=== PATIENT | female | born 1965 | race American Indian/Alaskan Native ===

== ENCOUNTER 2021-10-10 10:56 | Outpatient (CLI) | payer OTHER ==
--- NOTE | 2021-10-10 12:15 | XRay Report ---
BILATERAL KNEES 3 VIEWS INDICATION: BILATERAL KNEE PAIN. COMPARISON: None. IMPRESSION: No acute osseous or soft tissue abnormality. Mild to moderate osteoarthritic changes are identified bilaterally. The left knee appears slightly more affected. Surgical screw is suggested in the distal femur, correlate with surgical history. This may be related to previous ACL repair. No significant joint effusion. Signer Name: Mario Samuel Jr, MD Signed: 10/10/2021 12:11 PM Workstation Name: [id number]
== END 2021-10-10 10:57 | disposition home or self-care (01) ==
LOC: XRAY 10:56
PROVIDERS: ATTEND Internal Medicine
DX: M17.0 Bilateral primary osteoarthritis of knee (principal)